=== PATIENT | male | born 2000 ===

== ENCOUNTER 2018-02-07 13:04 | Emergency (ER) | payer MEDICAID, OTHER ==
[2018-02-07 13:22] VITALS: RESP 18; TEMP 98.6
--- NOTE | 2018-02-07 13:46 | ED PDOC ---
Arrival/HPI - General Chief Complaint: GI Problem Time Seen by Provider: 02/07/18 13:08 Historian: Patient - History of Present Illness Narrative History of Present Illness (Text): 02/07/18 13:38 A 17 year old male, with no significant past medical history, presents to the emergency department complaining of rectal bleeding for 3 months. Patient reports sometimes after a bowel movement, he sees blood while wiping. Very mild blood. Blood does not fill the toilet bowel or drip. Patient denies any other complaints at this time. Also, patient mentions having gastritis when he was 7 years old and had asthma when he was a kid. Admits to occasional drinking/smoking. No fever, chills or night sweats. No constipation or diarrhea. No Dark stool. No blood thinners or trauma. No anal sex or anal insertion per pt. No PMD Time/Duration: > month (3 months) Past Medical History - Provider Review Nursing Documentation Reviewed: Yes - Infectious Disease Hx of Infectious Diseases: None - Psychiatric Hx Substance Use: No - Anesthesia Hx Anesthesia: No Family/Social History - Physician Review Nursing Documentation Reviewed: Yes Family/Social History: No Known Family HX Smoking Status: Current Some Days Smoker Hx Alcohol Use: Yes Frequency of alcohol use: Socially Hx Substance Use: No Allergies/Home Meds Allergies/Adverse Reactions: Allergies No Known Allergies Allergy (Verified 02/07/18 13:22) Home Medications: Home Meds Medication Instructions Recorded Confirmed No Known Home Med 02/07/18 02/07/18 Review of Systems - Review of Systems Constitutional: Normal Eyes: Normal. absent: Vision Changes ENT: Normal. absent: Hearing Changes Respiratory: Normal. absent: SOB Cardiovascular: Normal. absent: Chest Pain Gastrointestinal: Other (rectal bleeding). absent: Food Intolerance Genitourinary Male: Normal Musculoskeletal: Normal. absent: Arthralgias Skin: Normal. absent: Rash Neurological: Normal. absent: Headache Endocrine: Normal Hemo/Lymphatic: Normal Psychiatric: Normal Physical Exam Vital Signs Reviewed: Yes Vital Signs Temp Pulse Resp BP Pulse Ox 02/07/18 13:19 98.6 F 80 18 128/84 99 Temperature: Afebrile Blood Pressure: Normal Pulse: Regular Respiratory Rate: Normal Appearance: Positive for: Well-Appearing, Non-Toxic, Comfortable Pain Distress: None Mental Status: Positive for: Alert and Oriented X 3 - Systems Exam Head: Present: Atraumatic, Normocephalic Pupils: Present: PERRL Extroacular Muscles: Present: EOMI Conjunctiva: Present: Normal Mouth: Present: Moist Mucous Membranes Neck: Present: Normal Range of Motion Respiratory/Chest: Present: Clear to Auscultation, Good Air Exchange. No: Respiratory Distress, Accessory Muscle Use Cardiovascular: Present: Regular Rate and Rhythm, Normal S1, S2. No: Murmurs Abdomen: No: Tenderness, Distention, Peritoneal Signs, Rebound, Hernias, Feeding Tubes Rectal: Present: Other (positive guaiac; no maroon stool, no bright red blood.). No: Occult Blood, Rectal Tenderness, Melena, Fissures, Nodule/Mass/Lesions Back: Present: Normal Inspection Upper Extremity: Present: Normal Inspection. No: Cyanosis, Edema Lower Extremity: Present: Normal Inspection. No: Edema Neurological: Present: GCS=15, CN II-XII Intact, Speech Normal Skin: Present: Warm, Dry, Normal Color. No: Rashes Psychiatric: Present: Alert, Oriented x 3, Normal Insight, Normal Concentration Medical Decision Making ED Course and Treatment: 02/07/18 13:42 Impression: 17 year old male with rectal bleeding. Physical exam shows no acute findings except on rectal exam, shows positive guaiac, no masses, no melena, no maroon stool, no bright red blood. Differential Diagnosis included but are not limited to: Internal Hemorrhoid vs. diverticulosis vs abrasion Plan: -- Labs -- Reassess and disposition Progress Notes: 02/07/18 15:17 labs unremarkable. Remains w/ out abdominal pain. Clear for d/c home - Scribe Statement The provider has reviewed the documentation as recorded by the Deanna Hyde Provider Scribe Attestation: All medical record entries made by the Arinibdominick were at my direction and personally dictated by me. I have reviewed the chart and agree that the record accurately reflects my personal performance of the history, physical exam, medical decision making, and the department course for this patient. I have also personally directed, reviewed, and agree with the discharge instructions and disposition. Disposition/Present on Arrival - Present on Arrival Any Indicators Present on Arrival: No History of DVT/PE: No History of Uncontrolled Diabetes: No Urinary Catheter: No History of Decub. Ulcer: No History Surgical Site Infection Following: None - Disposition Have Diagnosis and Disposition been Completed?: Yes Diagnosis: Bloody stool Disposition: HOME/ ROUTINE Disposition Time: 15:16 Patient Problems: Current Active Problems Problem Status Onset Bloody stool Acute Condition: GOOD Discharge Instructions (ExitCare): Bloody Stools, Bloody Stools, Adult (DC) Additional Instructions: TALI LOMAX, thank you for letting us take care of you today. Your provider was Tali Fernández and you were treated for PROSTATE CHECKUP. The emergency medical care you received today was directed at your acute symptoms. If you were prescribed any medication, please fill it and take as directed. It may take several days for your symptoms to resolve. Return to the Emergency Department if your symptoms worsen, do not improve, or if you have any other problems. Please contact your doctor or call one of the physicians/clinics you have been referred to that are listed on the Patient Visit Information form that is included in your discharge packet. Bring any paperwork you were given at discharge with you along with any medications you are taking to your follow up visit. Our treatment cannot replace ongoing medical care by a primary care provider outside of the emergency department. Thank you for allowing the [facility] team to be part of your care today. If you had an X-Ray or CT scan: A Radiologist will review the ED reading if any change in treatment is needed we will contact you. If you had a blood, urine, or wound culture: It will take several days for the results, if any change in treatment is needed we will contact you. If you had an STI test: It will take 48 hours for the results. Please call after 1 week if you have not heard back. Referrals: Muna Lopes MD [Medical Doctor] - Follow up with primary Danny Cherry DO [Staff Provider] - Follow up with primary Forms: [employer] (Indian)
[2018-02-07 15:04] LABS: ALB/GLOB RATIO 1.5 (1.1-1.8); ALBUMIN 4.4 g/dL (3.0-4.8); ALT/SGPT 24 U/L (7-56); AST/SGOT 27 U/L (17-59); BLOOD UREA NITROGEN 16 mg/dL (7-21); CALCIUM 9.6 mg/dL (8.4-10.5); GFR NON-AFRICAN AMERICAN > 60
[2018-02-07 15:11] LABS: BASO # 0.01 K/mm3 (0.0-2.0); BASO % 0.3 % (0.0-3.0); EOS # 0.1 (0.0-0.7); EOS % 2.4 % (1.5-5.0); GRAN # 1.79 (1.4-6.5); GRAN % 47.8 % (50.0-68.0); HEMOGLOBIN 14.9 g/dL (14.0-18.0); LYMPH # 1.6 (1.2-3.4); LYMPH % 41.7 % (22.0-35.0); MEAN CELL VOLUME 85.4 fl (80.0-105.0); MEAN CORPUSCULAR HEMOGLOBIN 29.9 pg (25.0-35.0); MEAN PLATELET VOLUME 9.5 fl (7.0-11.0); MONO # 0.3 (0.1-0.6); MONO % 7.8 % (1.0-6.0); RBC 4.99 10^6/uL (3.5-6.1); RED CELL DISTRIBUTION WIDTH 12.7 % (11.5-14.5); WHITE BLOOD COUNT 3.7 10^3/ul (4.5-11.0)
[2018-02-07 16:06] VITALS: BP 122/75; PULSE 69; O2SAT 100
== END 2018-02-07 16:05 | disposition home or self-care (01) ==
LOC: ED 13:04
DX: K92.1 Melena (principal)